=== PATIENT | female | born 1955 | race Caucasian/White ===

== ENCOUNTER 2017-08-16 00:37 | Emergency (ER) | payer OTHER ==
[~2017-08-16] VITALS: Ht 152.4 cm; Wt 72.1 kg
[~2017-08-16 00:37] MED LIST: NEXIUM40 MG/PACK; SINGULAIR10 MG; ZETIA10 MG
[2017-08-16] MEDS ORDERED: IMITREX50 MG PO (00:58)
[2017-08-16] MEDS ORDERED: KETO10TA2 PO (08:16)
== END 2017-08-16 08:30 | disposition home or self-care (01) ==
LOC: ER 00:37
DX: R10.32 Left lower quadrant pain (principal)